=== PATIENT | female | born 1955 | race Caucasian/White ===

== ENCOUNTER 2017-02-06 08:52 | Day surgery (SDC) | payer MEDICARE ==
[~2017-02-06 08:52] MED LIST: ASPIRIN 81MG TA81 MG PO; CIPRO 500MG TA500 MG PO; HYDROCODONE-APA1 TA1 PO; JANUMET 1000 MG1 TAB PO; LEXAPRO20 MG PO; LISINOPRIL/HCTZ1 TA1 PO; METFORMIN 500M500 MG PO; MULTI VITAMINS1 TAB PO; PRAVASTATIN SOD80 MG PO; SYNTHROID0.088 MG PO
--- NOTE | 2017-02-06 11:22 | Operative Note ---
Upper GI Endoscopy Procedure date: 02/06/17 Date of : 55 Procedure:Upper GI Endoscopy Esophagogastroduodenoscopy with cold biopsies and TTS balloon dilation Indications: Mrs. Warren is a 61-year-old female who was having postprandial epigastric abdominal pain with dyspepsia. She was having some bloating, nausea and intermittent vomiting of undigested food. She would sometimes awaken at 3 or 4 AM in the morning with the nausea. She was placed on pantoprazole which has helped. She was having symptoms of chronic constipation/obstipation which have improved with the fiber bowel regimen (MiraLAX plus Citrucel) and probiotic. The patient did have a colonoscopy in [address] Bennie Swann M.D. which did not show any colon polyps. This is her first upper endoscopy. She does state that she chokes easily. She reports no melena or weight loss. Performing Provider: Nicola Walls MD Referring Provider: Alec Leon M.D. Sedation: Fentanyl 200 mg IV/Versed 11 mg IV Procedure: Prior to the procedure, a history and physical exam was performed, and patients medications and allergies were reviewed. The risks and benefits of the procedure and the sedation options and risks were discussed with the patient. All questions were answered and informed consent was obtained. The patient was brought to the procedure room. Patient identification and proposed procedure were verified by the physician and the nurse. The patient was placed in a left lateral decubitus position and the scope was passed under direct vision. Throughout the procedure, the patient's blood pressure, pulse, and oxygen saturations were monitored continuously. The endoscope was introduced through the mouth, and advanced to the second part of duodenum. The upper GI endoscopy was accomplished without difficulty. The patient tolerated the procedure well. Findings: The scope was passed directly into the upper esophagus and advanced to the third portion of the duodenum. The post bulbar duodenum and duodenal bulb were normal with normal mucosa and conniventes. There was evidence of mild duodenal lymphoid stasis. Cold biopsies were taken from the post bulbar duodenum. The scope was withdrawn through a normal duodenal bulb and pylorus into the stomach. There was some bile reflux with mild to moderate linear reactive gastritis of the antrum and body. The remainder of the antrum, body and fundus of the stomach were grossly normal. Upon retroflexion there was a very small sliding 1-2 cm hiatal hernia. 2 biopsies were taken in the antrum and along the lesser curvature for histology. The scope was then withdrawn into the esophagus. There was a distal Schatzki's ring. There was no evidence of reflux esophagitis or Cid's. There were tertiary contractions and mild dysmotility. The entire esophagus was dilated to 60 Martin[place]/20 mm with a TTS hydrostatic balloon. The remainder of the esophageal mucosa was normal. Immediate complications: None EBL (ml): 0 Impression: 1. Nonerosive gastroesophageal reflux disease with mild esophageal dysmotility and very small sliding hiatal hernia 2. Schatzki's ring and mild esophageal dyskinesia status post dilation to 20 mm 3. Bile reflux with mild linear reactive gastritis Recommendations: I do feel that the patient has functional dyspepsia and functional gastroesophageal reflux disease. She has responded well to fiber bowel regimen ( MiraLAX plus Citrucel) and pantoprazole. I will not likely add additional therapy since she has improved clinically. I will follow up the biopsies. at 1122
[2017-02-06 15:12] VITALS: BP 130/67
== END 2017-02-06 12:25 | disposition home or self-care (01) ==
LOC: SDC 08:52
PROVIDERS: Internal Medicine Gastroenterology
PROC: 0D758ZZ Dilation of Esophagus, Via Natural or Artificial Opening Endoscopic (ICD-10-PCS; 2017-02-06)
PROC: 0DB68ZX Excision of Stomach, Via Natural or Artificial Opening Endoscopic, Diagnostic (ICD-10-PCS; principal; 2017-02-06 10:30)
DX: K21.9 Gastro-esophageal reflux disease without esophagitis (principal); K44.9 Diaphragmatic hernia without obstruction or gangrene; K22.4 Dyskinesia of esophagus; K22.2 Esophageal obstruction; K29.70 Gastritis, unspecified, without bleeding
CPT/HCPCS: C1726